=== PATIENT | female | born 1980 | race Caucasian/White ===

== ENCOUNTER 2017-06-12 16:55 | Emergency (ER) | payer OTHER ==
[~2017-06-12] VITALS: Ht 177.8 cm; Wt 73.5 kg
[2017-06-12 17:27] LABS: HEMATOCRIT 37.2 % (36.0-46.0); HEMOGLOBIN 12.4 G/DL (11.9-15.5); MCH 31.6 PG (29.0-34.0); MCHC 33.3 G/DL (30.0-36.0); MCV 94.7 FL (83-99); PLATELET COUNT 172 K/uL (156-360); RBC DIS.WIDTH-CV 14.5 % (11.8-14.6); RBC DIS.WIDTH-SD 50.5 % (39-53); RED BLOOD COUNT 3.93 M/uL (3.80-5.20); WHITE BLOOD COUNT 6.4 K/uL (4.1-10.2)
[2017-06-12 17:42] LABS: ALBUMIN 4.3 g/dL (3.2-4.8); CHLORIDE 109 mEq/L (99-109); POTASSIUM 4.3 mEq/L (3.7-5.4); SODIUM 136 mEq/L (136-147)
[2017-06-12 17:44] LABS: GLUCOSE 89 mg/dL (70-99); TOTAL PROTEIN 7.3 g/dL (6.4-8.3)
[2017-06-12 17:46] LABS: TOTAL BILIRUBIN 0.6 mg/dL (0.0-1.0)
[2017-06-12 17:47] LABS: SERUM ETHYL ALCOHOL < 10 mg/dL
[2017-06-12 17:48] LABS: ALKALINE PHOSPHATASE 162 IU/L (3-129); CREATININE 1.2 mg/dL (0.6-1.3)
[2017-06-12 17:49] LABS: AST (GOT) 30 IU/L (2-34)
[2017-06-12 17:50] LABS: UREA NITROGEN (BUN) 25 mg/dL (9-23)
[2017-06-12 17:51] LABS: SALICYLATE < 5.0 MG/DL (15-30)
[2017-06-12 17:52] LABS: ACETAMINOPHEN (TYLENOL) < 10 mcg/mL (10-30); ALT (GPT) 35 IU/L (3-49); GFR ESTIMATE (CALCULATED) 54 mL/min/
[2017-06-12 17:57] LABS: QUANTITATIVE HCG < 4.0 MIU/ML
[2017-06-12] MEDS ORDERED: BUPROPION XL150 MG PO (18:27)
[2017-06-12] MEDS ORDERED: BUSPAR10 MG PO (18:28)
[2017-06-12] MEDS ORDERED: HALOPERIDOL5 MG PO (18:28)
[2017-06-12] MEDS ORDERED: NALTREXONE HCL50 MG PO (18:29)
[2017-06-12] MEDS ORDERED: PRAZOSIN HCL1 MG PO (18:30)
[2017-06-12] MEDS ORDERED: VENTOLIN HFA18 GM IH (18:30)
[2017-06-12] MEDS ORDERED: XIFAXAN550 MG PO (18:30)
[2017-06-12] MEDS ORDERED: VITAMIN D2000 UNI1 PO (18:31)
[2017-06-12] MEDS ORDERED: FERROUS SULFAT325 MG PO (18:31)
[2017-06-12] MEDS ORDERED: GABAPENTIN800 MG PO (18:32)
[2017-06-12] MEDS ORDERED: MIRTAZAPINE30 MG PO (18:32)
[2017-06-12] MEDS ORDERED: DAILY VALUE1 EACH PO (18:33)
[2017-06-12] MEDS ORDERED: ONDANSETRON ODT8 MG PO (18:34)
[2017-06-12] MEDS ORDERED: OMEPRAZOLE20 MG PO (18:34)
[2017-06-12] MEDS ORDERED: TOPIRAMATE25 MG PO (18:35)
[2017-06-12] MEDS ORDERED: INDERAL20 MG PO (18:35)
[2017-06-12 23:47] VITALS: BP 107/74
== END 2017-06-12 23:48 | disposition home or self-care (01) ==
LOC: EME 16:55
PROVIDERS: Emergency Medicine
DX: S09.90XA Unspecified injury of head, initial encounter (principal); S70.02XA Contusion of left hip, initial encounter; F12.10 Cannabis abuse, uncomplicated; W10.9XXA Fall (on) (from) unspecified stairs and steps, initial encounter; K74.60 Unspecified cirrhosis of liver; F32.9 Major depressive disorder, single episode, unspecified; F31.9 Bipolar disorder, unspecified; F25.9 Schizoaffective disorder, unspecified; F17.200 Nicotine dependence, unspecified, uncomplicated; Z91.040 Latex allergy status; Z88.5 Allergy status to narcotic agent; Z88.2 Allergy status to sulfonamides; Z88.0 Allergy status to penicillin; Z88.1 Allergy status to other antibiotic agents; Z88.8 Allergy status to other drugs, medicaments and biological substances; Z91.041 Radiographic dye allergy status
CPT/HCPCS: 70450; 72125; 74176; 80053; 82140; 84702; 85027; 90839; 99281; 99284; G0480